=== PATIENT | male | born 1980 | race Caucasian/White ===

== ENCOUNTER 2017-12-18 02:21 | Emergency (ER) | payer SELFPAY ==
[~2017-12-18] VITALS: Ht 177.8 cm; Wt 120.0 kg
[~2017-12-18 02:21] MED LIST: BACT800T5 PO; CEPH500C3 PO
[2017-12-18 02:34] VITALS: BP 199/103; PULSE 60; RESP 20; TEMP 98.1; O2SAT 97
[2017-12-18] MEDS ORDERED: MORPHINE SULFATE 4 MG/ML INJ IV PUSH ONE (04:30)
[2017-12-18] MEDS ORDERED: SODIUM CHLOR 0.9% 1000 ML INJ 1,000 ML IV ONE (04:30)
[2017-12-18] MEDS ORDERED: KETOROLAC TROMETHAMINE 30 MG/ML (IVP) VIAL IV PUSH ONE (04:30)
[2017-12-18 04:45] LABS: BASOPHIL % 0.4 % (0.0-2.0); EOSINOPHIL # 0.1 TH/MM3 (0-0.4); EOSINOPHIL % 0.8 % (0.0-4.0); HEMATOCRIT 43.7 % (39.0-51.0); HEMOGLOBIN 15.2 GM/DL (13.0-17.0); LYMPH % 15.7 % (9.0-44.0); MEAN CELL VOLUME 87.8 FL (80.0-100.0); MEAN CORPUSCULAR HEMOGLOBIN 30.5 PG (27.0-34.0); MEAN CORPUSCULAR HGB CONC 34.8 % (32.0-36.0); MONO % 5.9 % (0.0-8.0); MONOCYTE # 0.4 TH/MM3 (0-0.9); NEUT % 77.2 % (16.0-70.0); PLATELET COUNT 133 TH/MM3 (150-450); RED BLOOD COUNT 4.98 MIL/MM3 (4.50-5.90); RED CELL DISTRIBUTION WIDTH 13.3 % (11.6-17.2); WHITE BLOOD COUNT 6.5 TH/MM3 (4.0-11.0)
--- NOTE | 2017-12-18 04:53 | PD ---
HPI Chief Complaint: Flank/Kidney Pain Time Seen by Provider: 03:54 Travel History International Travel<30 days: No Contact w/Intl Traveler<30days: No Traveled to known affect area: No History of Present Illness HPI Patient is a 37-year-old male with a distant history of kidney stones in the past 7 years ago...Pt now is coming in saying the last 5 hours severe pain in the right flank radiating around to his right abdomen with pressure in the suprapubic area & dysuria... the pain is a 10 out of 10 ....it is more severe than the last time he had a kidney stone,,,, pain is stabbing and radiating goes towards the suprapubic area is not relieved by any home OTC analgesics Associted with nausea , He has not seen another MD for this complaint [facility] Past Medical History Diminished Hearing: No Genitourinary: Yes (HX KIDNEY STONES ) Immunizations Current: Yes Tetanus Vaccination: < 5 Years Influenza Vaccination: No Social History Alcohol Use: Yes (OCCASIONAL) Tobacco Use: No Substance Use: No Allergies-Medications (Allergen,Severity, Reaction): Coded Allergies: No Known Allergies (Verified Adverse Reaction, Unknown, 12/18/17) Reported Meds & Prescriptions Reported Meds & Active Scripts Active Zofran Odt (Ondansetron Odt) 4 Mg Tab 4 Mg SL Q6HR PRN Flomax (Tamsulosin HCl) 0.4 Mg Cap 0.4 Mg PO HS Ibuprofen 600 Mg Tab 600 Mg PO Q6H PRN Percocet (Oxycodone-Acetaminophen) 5-325 mg Tab 1-2 Tab PO Q6H PRN Review of Systems Except as stated in HPI: all other systems reviewed are Neg Physical Exam Narrative GENERAL: Patient appears to be in distress holding his right flank lying flat on the bed SKIN: Warm and dry. HEAD: Atraumatic. Normocephalic. EYES: Pupils equal and round. No scleral icterus. No injection or drainage. ENT: No nasal bleeding or discharge. Mucous membranes pink and moist. NECK: Trachea midline. No JVD. CARDIOVASCULAR: Regular rate and rhythm. RESPIRATORY: No accessory muscle use. Clear to auscultation. Breath sounds equal bilaterally. GASTROINTESTINAL: Abdomen right-sided abdominal pain and right-sided flank pain MUSCULOSKELETAL: Extremities without clubbing, cyanosis, or edema. No obvious deformities. NEUROLOGICAL: Awake and alert. No obvious cranial nerve deficits. Motor grossly within normal limits. Five out of 5 muscle strength in the arms and legs. Normal speech. PSYCHIATRIC: Appropriate mood and affect; insight and judgment normal. Data Data Last Documented VS Orders Orders Urinalysis - C+S If Indicated (12/18/17 04:10) Complete Blood Count With Diff (12/18/17 04:18) Comprehensive Metabolic Panel (12/18/17 04:18) Lipase (12/18/17 04:18) Ct Abd/Pel W/O Iv Contrast (12/18/17 04:18) Sodium Chlor 0.9% 1000 Ml Inj (Ns 1000 M (12/18/17 04:30) Ketorolac Inj (Toradol Inj) (12/18/17 04:30) Morphine Inj (Morphine Inj) (12/18/17 04:30) Labs Laboratory Tests Test 12/18/17 04:27 White Blood Count 6.5 TH/MM3 Red Blood Count 4.98 MIL/MM3 Hemoglobin 15.2 GM/DL Hematocrit 43.7 % Mean Corpuscular Volume 87.8 FL Mean Corpuscular Hemoglobin 30.5 PG Mean Corpuscular Hemoglobin Concent 34.8 % Red Cell Distribution Width 13.3 % Platelet Count 133 TH/MM3 Mean Platelet Volume 9.0 FL Neutrophils (%) (Auto) 77.2 % Lymphocytes (%) (Auto) 15.7 % Monocytes (%) (Auto) 5.9 % Eosinophils (%) (Auto) 0.8 % Basophils (%) (Auto) 0.4 % Neutrophils # (Auto) 5.0 TH/MM3 Lymphocytes # (Auto) 1.0 TH/MM3 Monocytes # (Auto) 0.4 TH/MM3 Eosinophils # (Auto) 0.1 TH/MM3 Basophils # (Auto) 0.0 TH/MM3 CBC Comment DIFF FINAL Differential Comment Urine Color YELLOW Urine Turbidity HAZY Urine pH 5.0 Urine Specific Taylor 1.017 Urine Protein 30 mg/dL Urine Glucose (UA) NEG mg/dL Urine Ketones NEG mg/dL Urine Occult Blood LARGE Urine Nitrite NEG Urine Bilirubin NEG Urine Urobilinogen LESS THAN 2 mg/dL Urine Leukocyte Esterase NEG Urine RBC 53 /hpf Urine WBC 3 /hpf Urine Squamous Epithelial Cells <1 /hpf Urine Bacteria RARE /hpf Urine Hyaline Casts 9 /lpf Urine Mucus FEW /lpf Microscopic Urinalysis Comment CULT NOT INDICATED Blood Urea Nitrogen 11 MG/DL Creatinine 0.99 MG/DL Random Glucose 129 MG/DL Total Protein 7.2 GM/DL Albumin 3.9 GM/DL Calcium Level 9.7 MG/DL Alkaline Phosphatase 70 U/L Aspartate Amino Transf (AST/SGOT) 33 U/L Alanine Aminotransferase (ALT/SGPT) 75 U/L Total Bilirubin 0.3 MG/DL Sodium Level 143 MEQ/L Potassium Level 4.1 MEQ/L Chloride Level 110 MEQ/L Carbon Dioxide Level 25.1 MEQ/L Anion Gap 8 MEQ/L Estimat Glomerular Filtration Rate 85 ML/MIN Lipase 173 U/L [facility] Medical Decision Making Medical Screen Exam Complete: Yes Emergency Medical Condition: Yes Differential Diagnosis Differential diagnosis includes kidney stone versus radiculopathy versus back strain versus muscle spasm versus appendicitis versus cholecystitis Narrative Course CT shows a 3 mm stone in the proximal ureter with mild dilated hydroureter mild hydronephrosis ...patient is feeling comfortable out of pain... I will give him a Flomax ,ibuprofen, Percocet ,the name of the urologist for the kidney stone,, and a urine strainer to collect the stone Diagnosis Primary Impression: Kidney stone Referrals: Simone Chapa DO Patient Instructions: General Instructions, Kidney Stones (ED) Scripts Ondansetron Odt (Zofran Odt) 4 Mg Tab 4 MG SL Q6HR Y for Nausea/Vomiting, #15 TAB 0 Refills Prov: Cy Williamson MD 12/18/17 Tamsulosin (Flomax) 0.4 Mg Cap 0.4 MG PO HS for Manage Prostate Problems, #10 CAP 0 Refills Prov: Cy Williamson MD 12/18/17 Ibuprofen (Ibuprofen) 600 Mg Tab 600 MG PO Q6H Y for Pain/Inflammation, #40 TAB 0 Refills Prov: Cy Williamson MD 12/18/17 Oxycodone-Acetaminophen (Percocet) 5-325 mg Tab 1-2 TAB PO Q6H Y for PAIN, #15 TAB 0 Refills Prov: Cy Williamson MD 12/18/17 Disposition: 01 DISCHARGE HOME Condition: Good Cy Williamson MD Dec 18, 2017 04:53
[2017-12-18 05:00] LABS: ALBUMIN 3.9 GM/DL (3.4-5.0); ALT (GPT) 75 U/L (12-78); AST (GOT) 33 U/L (15-37); BICARBONATE 25.1 MEQ/L (21.0-32.0); BLOOD UREA NITROGEN 11 MG/DL (7-18); CALCIUM 9.7 MG/DL (8.5-10.1); CHLORIDE 110 MEQ/L (98-107); CREATININE 0.99 MG/DL (0.60-1.30); GLOMERULAR FILTRATION RATE 85 ML/MIN (>89); GLUCOSE,RANDOM 129 MG/DL (74-106); SODIUM (NA) 143 MEQ/L (136-145)
[2017-12-18 05:02] LABS: ALKALINE PHOSPHATASE 70 U/L (45-117); TOTAL BILIRUBIN ADULT 0.3 MG/DL (0.2-1.0); TOTAL PROTEIN 7.2 GM/DL (6.4-8.2)
[2017-12-18 05:23] LABS: BACTERIA, URINE RARE /hpf; BILIRUBIN, URINE NEG (NEG); BLOOD, URINE LARGE (NEG); GLUCOSE,URINE NEG (NEG); HYALINE CAST, URINE 9 /lpf (RARE); KETONE, URINE NEG (NEG); MUCUS URINE FEW /lpf (OCC); NITRITE,URINE NEG (NEG); SQUAMOUS EPITHELIAL CELL URINE <1 /hpf (0-5); URINE COLOR YELLOW (YELLW/STRAW); URINE LEUKOCYTE ESTERASE NEG (NEG)
--- NOTE | 2017-12-18 05:45 | RADRPT ---
EXAM DATE: 12/18/2017 5:07 AM EDT AGE/SEX: 37 years / Male INDICATIONS: Bilateral flank pain. CLINICAL DATA: This is the patient's initial encounter. Patient reports that signs and symptoms have been present for 1 day and indicates a pain score of 4/10. MEDICAL/SURGICAL HISTORY: Renal calculi. None. RADIATION DOSE: 31.53 CTDI (mGy) ; Patient body habitus COMPARISON: No prior exams available for comparison. TECHNIQUE: Multiple contiguous axial images were obtained through the abdomen. Images were obtained using multiple row detector helical technique. Using automated exposure control and adjustment of the mA and/or kV according to patient size, radiation dose was kept as low as reasonably achievable to o btain optimal diagnostic quality images. DICOM format image data is available electronically for rev iew and comparison. FINDINGS: Lower Lungs: The visualized lower lungs are clear. Liver: There is decreased attenuation to the liver. The gallbladder is unremarkable. Spleen: The spleen is upper limits of normal for size. Pancreas: Unremarkable without mass or calcification. Kidneys: There is mild to moderate dilatation of the right collecting system. There is a 3 mm stone seen at the right UPJ. The left kidney is unremarkable. Adrenal Glands: Unremarkable. Aorta: The aorta and proximal iliac vessels are grossly unremarkable without aneurysmal dilation. Bowel/Mesentery: The bowel loops are grossly unremarkable. The cecum and sigmoid colon have a normal configuration. Abdominal Wall: Intact. Retroperitoneum: No evidence of adenopathy in the retrocrural, para-aortic, or deep pelvic regions. Bladder: Contours are smooth. Reproductive Organs: No abnormal masses or calcifications seen. Inguinal: The inguinal region is unremarkable without evidence of adenopathy. Bony Structures: Pars defects are seen at L5. CONCLUSION: 1. 3 mm stone at the right UPJ with mild to moderate dilatation of the right collecting system. 2. Hepatic steatosis. 3. Pars defects at L5. Electronically signed by: Al Robins MD 12/18/2017 5:44 AM EDT
[2017-12-18] MEDS ORDERED: IBUP-232 PO (06:15)
[2017-12-18] MEDS ORDERED: TAMS5CAP PO (06:15)
[2017-12-18] MEDS ORDERED: PERC5TAB12 PO (06:15)
[2017-12-18] MEDS ORDERED: ZOFR4TAB3 SL (06:15)
== END 2017-12-18 06:39 | disposition home or self-care (01) ==
LOC: NEPE 02:21
DX: N13.2 Hydronephrosis with renal and ureteral calculous obstruction (principal); R10.9 Unspecified abdominal pain; R30.0 Dysuria; K76.0 Fatty (change of) liver, not elsewhere classified; Z87.442 Personal history of urinary calculi
CPT/HCPCS: 74176; 80053; 81001; 83690; 85025; 96361; 96374; 99284; J1885; J2270; J7030